=== PATIENT | female | born 1970 | race Hispanic/Latino ===

== ENCOUNTER 2024-01-11 11:59 | Emergency (ER) | payer SELFPAY ==
[~2024-01-11] VITALS: Ht 170.2 cm; Wt 71.7 kg
[2024-01-11 12:00] VITALS: PULSE 98; RESP 18; TEMP 98.6
[2024-01-11] MEDS ORDERED: ADULT GLYCERIN1 EACH PR (12:58)
[2024-01-11] MEDS ORDERED: STOOL SOFTENER100 M1 PO (12:58)
[2024-01-11] MEDS ORDERED: FLEET ENEMA133 ML PR (12:58)
[2024-01-11 13:37] VITALS: BP 128/84; PULSE 76; RESP 18; TEMP 98.6; O2SAT 99
== END 2024-01-11 13:38 | disposition home or self-care (01) ==
LOC: FSED 12:05
DX: K56.41 Fecal impaction (principal); K62.89 Other specified diseases of anus and rectum; F32.A Depression, unspecified
CPT/HCPCS: 99283

== ENCOUNTER 2024-02-02 12:02 | Emergency (ER) | payer SELFPAY ==
[~2024-02-02] VITALS: Ht 170.2 cm; Wt 72.8 kg
[~2024-02-02 12:02] MED LIST: ADULT GLYCERIN1 EACH PR; FLEET ENEMA133 ML PR; STOOL SOFTENER100 M1 PO
[2024-02-02] MEDS ORDERED: VENLAFAXINE HCL75 M1 PO (12:14)
[2024-02-02] MEDS ORDERED: robaxin PO (12:25)
[2024-02-02 12:29] VITALS: PULSE 85; RESP 16; TEMP 97.6; O2SAT 98
== END 2024-02-02 12:29 | disposition home or self-care (01) ==
LOC: FSED 12:09
DX: S16.1XXA Strain of muscle, fascia and tendon at neck level, initial encounter (principal); R51.9 Headache, unspecified; V43.52XA Car driver injured in collision with other type car in traffic accident, initial encounter; Y92.488 Other paved roadways as the place of occurrence of the external cause; J44.9 Chronic obstructive pulmonary disease, unspecified; F32.A Depression, unspecified
CPT/HCPCS: 99283

== ENCOUNTER 2024-06-24 17:00 | Emergency (ER) | payer SELFPAY ==
[~2024-06-24] VITALS: Ht 170.2 cm; Wt 75.5 kg
[~2024-06-24 17:00] MED LIST changes: +VENLAFAXINE HCL75 M1 PO; +robaxin PO
[2024-06-24 17:04] VITALS: PULSE 83; RESP 20; TEMP 97.3; O2SAT 98
[2024-06-24] MEDS ORDERED: FLUOXETINE HCL20 MG PO (17:12)
[2024-06-24] MEDS ORDERED: DIPHENHYDRAMINE25 M2 PO (17:19)
[2024-06-24] MEDS ORDERED: NASACORT16.9 ML (17:19)
[2024-06-24] MEDS ORDERED: LORATADINE-D 21 EAC1 PO (17:19)
== END 2024-06-24 17:24 | disposition home or self-care (01) ==
LOC: FSED 17:12
DX: R05.9 Cough, unspecified (principal); J30.9 Allergic rhinitis, unspecified; R09.89 Other specified symptoms and signs involving the circulatory and respiratory systems; H93.8X3 Other specified disorders of ear, bilateral
CPT/HCPCS: 99284